=== PATIENT | male | born 2000 | race Caucasian/White ===

== ENCOUNTER 2025-04-28 10:01 | Emergency (ER) | payer SELFPAY | END 2025-04-28 11:32 | disposition home or self-care (01) | LOC: JP.ED 10:01 | DX: H74.8X1 Other specified disorders of right middle ear and mastoid (principal); F17.210 Nicotine dependence, cigarettes, uncomplicated; Z91.030 Bee allergy status; Z88.8 Allergy status to other drugs, medicaments and biological substances | CPT/HCPCS: 99282; 99283 ==